=== PATIENT | male | born 1960 | race Caucasian/White ===

== ENCOUNTER 2018-12-02 15:14 | Outpatient (CLI) | payer MEDICARE ==
[2014-08-18 14:52] VITALS: BP 145/101
[2018-12-12 08:32] LABS: BASOPHILS % 0.6 % (0.0-1.5); NEUTROPHILS # 6.7 # k/uL (1.4-7.7); eGFR (Non-African) > 60
--- NOTE | 2018-12-24 14:02 | Diagnostic Imaging Report ---
OUMAR VILLEDA [facility] [address] [facility].[address] [id number] Report Submission Date: Dec 02, 2018 4:03:13 PM CDT Patient Study Name: GORDY BRIDGES Date: Dec 02, 2018 3:20:40 PM CDT Modality Type: DX Gender: M Description: CHEST 2VIEW : 58 Institution: [facility] Physician: OUMAR VILLEDA Exam: Chest two views. History: Shortness of breath. No previous studies are available for comparison. Lung rodriguez are very well aerated without daphnie consolidation or effusion. Heart and mediastinal contour are normal. No bony abnormalities are seen. Impression: No daphnie consolidation or effusion. Electronically signed on Dec 02, 2018 4:03:13 PM CDT by: Russell JAY
== END 2018-12-02 15:30 ==
LOC: LAB 15:14
PROVIDERS: ATTEND Family Medicine
DX: I10 Essential (primary) hypertension (principal); R06.09 Other forms of dyspnea
CPT/HCPCS: 36415; 71020; 71046; 80053; 85025